=== PATIENT | male | born 1940 | race Caucasian/White ===

== ENCOUNTER 2023-01-31 12:19 | Outpatient (CLI) | payer MEDICARE | END 2023-01-31 12:20 | disposition home or self-care (01) | LOC: SCSMRI 12:19 | PROVIDERS: ATTEND Nurse Practitioner Family | DX: M51.17 Intervertebral disc disorders with radiculopathy, lumbosacral region (principal); M51.36 Other intervertebral disc degeneration, lumbar region; M48.061 Spinal stenosis, lumbar region without neurogenic claudication; M48.07 Spinal stenosis, lumbosacral region; M47.816 Spondylosis without myelopathy or radiculopathy, lumbar region; M47.27 Other spondylosis with radiculopathy, lumbosacral region | CPT/HCPCS: 72148 ==

== ENCOUNTER 2024-04-26 15:09 | Outpatient (CLI) | payer MEDICARE | END 2024-04-26 15:10 | disposition home or self-care (01) | LOC: ULT 15:09 | PROVIDERS: ATTEND Family Medicine | DX: R60.0 Localized edema (principal) | CPT/HCPCS: 93970 ==